=== PATIENT | male | born 1990 | race Caucasian/White ===

== ENCOUNTER 2022-08-30 09:18 | Outpatient (CLI) | payer OTHER, SELFPAY ==
--- NOTE | ~2022-08-30 | MR_ITS ---
MRI of the left knee Clinical history: Pain Technique: Coronal proton density and proton density-weighted images, sagittal proton-density and T2 fat-sat images, and axial proton-density fat-saturated images were acquired. Findings: Anterior and posterior cruciate ligaments are intact. Medial collateral ligament and the la teral collateral ligament complex are intact. Popliteus tendon is intact. Medial and lateral menisci are intact, without evidence of tear. Articular cartilage is well preserved throughout the knee. In the proximal tibia, there is an oval-sh aped lesion with peripheral ring of irregular focal T2 hyperintensities, with large area of central p reserved marrow, with the lesion overall measuring approximately 3.1 x 3.3 x 3.9 cm in extent (pabon l image 16, axial image 20 for example). There is similar appearing marrow signal abnormalities exten sively involving the patella, with smaller patchy similar signal abnormalities at the distal femoral epiphysis, just superior to the intercondylar notch and at the anterior aspect of the medial distal f emur. Extensor mechanism is intact. No significant joint effusion or Melchor's cyst. Impression: Multiple osseous lesions, involving the proximal tibia, distal femur, and patella, as detailed above. 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 Correlate c linically, especially for any underlying condition/medications which could predispose to bone infarct ions. Given the atypical appearance, which is presumably due to the acuteness of the findings, a foll ow-up MR is recommended in 6-8 weeks to reassess. Reviewed, dictated and finalized at [facility]. TYPE WORK[employer] Impression: Multiple osseous lesions, involving the proximal tibia, distal femur, and ware la, as detailed above. 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 Correlate clinically, especially for any under lying condition/medications which could predispose to bone infarctions. Given t he atypical appearance, which is presumably due to the acuteness of the finding s, a follow-up MR is recommended in 6-8 weeks to reassess.
== END 2022-08-30 09:19 | disposition home or self-care (01) ==
PROVIDERS: Visit Provider Orthopaedic Surgery
DX: M25.562 Pain in left knee (principal)
CPT/HCPCS: 73721